=== PATIENT | female | born 1990 | race Caucasian/White ===

== ENCOUNTER 2023-06-29 22:18 | Emergency (ER) | payer MEDICAID ==
[~2023-06-29] VITALS: Ht 160 cm; Wt 71.3 kg
[2023-06-29 22:49] VITALS: BP 121/75; RESP 22; O2SAT 98
[2023-06-29 23:11] LABS: Urine Bacteria FEW /hpf (None Seen); Urine Blood Negative /uL (Negative); Urine Clarity Clear (Clear); Urine Color Colorless (Yellow); Urine Protein, UAD Negative (Negative); Urine Specific Gravity 1.013 (1.001-1.035); Urine Urobilinogen Normal (Negative); Urine WBC 6 /hpf (0 - 5)
[2023-06-29 23:21] LABS: Hematocrit 39.7 % (36.0-46.0); Hemoglobin 13.5 g/dL (12.2-16.2); Mean Corpuscular Hemoglobin 32.2 pg (28.0-32.0); Mean Corpuscular Volume 94.6 fL (80.0-100.0); Red Cell Distribution Width 12.8 % (11.8-14.3); White Blood Cell 5.5 10^3/uL (4.4-10.8)
[2023-06-29 23:37] VITALS: PULSE 74
[2023-06-29 23:38] LABS: Amphetamine Screen, Urine Neg (NEGATIVE); Benzodiazephine Screen, Urine Neg (NEGATIVE)
[2023-06-29 23:38] LABS: Basophils % (manual) 0 (0.0-2.0); Blast Cells 0; Eosinophils % (manual) 0 (0-7); Metamyelocytes % 0; Myelocytes % 0; Promyelocytes % 0; Reactive Lymphocytes 0
[2023-06-29 23:39] LABS: Barbiturate Scree,Urine Neg (NEGATIVE); Cocaine Screen, Urine Neg (NEGATIVE); Opiate Scree,Urine Neg (NEGATIVE); Phencyclidine Screen, Urine Neg (NEGATIVE)
[2023-06-29 23:40] LABS: Cannabinoid Screen, Urine Neg (NEGATIVE)
[2023-06-29 23:41] LABS: INR 0.95 (0.9-1.15); Partial Thromboplastin Time 25.8 SEC (24.5-34.5)
[2023-06-29 23:42] LABS: Alanine Aminotransferase 25 U/L (7-40); Albumin 4.5 g/dL (3.2-4.8); Alkaline Phosphatase 60 U/L (46-116); Anion Gap 9.1 (5-15); Aspartate Aminotransferase 19 U/L (13-40); BUN/Creatinine Ratio 7.5 (10.0-20.0); Bilirubin, Total 0.3 mg/dL (0.2-1.0); Blood Urea Nitrogen 7 mg/dL (9-23); Carbon Dioxide 24.9 mmol/L (20-30); Chloride 111 mmol/L (98-107); Glucose 92 mg/dL (74-106); Potassium 3.8 mmol/L (3.5-5.1); Sodium 145 mmol/L (136-145); Total Protein 7.3 g/dL (5.7-8.2)
[2023-06-30] MEDS ORDERED: PRED20TA2 PO (00:28)
[2023-06-30] MEDS ORDERED: DIPH25CA66 PO (00:28)
[2023-06-30 01:08] LABS: Band Neutrophils % (manual) 1; Lymphocytes % (manual) 78 (10.0-50.0); Monocytes % (manual) 4 (0-12)
[2023-06-30 01:10] LABS: Platelet Estimate Adequate
== END 2023-06-30 03:00 | disposition home or self-care (01) ==
LOC: ER 22:18
DX: L50.9 Urticaria, unspecified (principal); R06.02 Shortness of breath; Z88.0 Allergy status to penicillin; Z79.899 Other long term (current) drug therapy; Z79.01 Long term (current) use of anticoagulants
CPT/HCPCS: 36415; 71045; 80053; 80307; 80320; 81001; 83880; 84484; 85007; 85027; 85610; 85730; 93005

== ENCOUNTER 2024-03-05 06:04 | Inpatient (IN) | payer MEDICAID ==
[~2024-03-05] VITALS: Ht 162.6 cm; Wt 80.8 kg
[~2024-03-05 06:04] MED LIST: DIPH25CA66 PO; PRED20TA2 PO
[2024-03-05 06:51] LABS: Basophils # (auto) 0.1 10 ^3/uL (0-0.2); Basophils % (auto) 0.7 % (0.0-2.0); Eosinophils # (auto) 0.3 10 ^3/uL (0-0.8); Eosinophils % (auto) 2.9 % (0.0-7.0); Hematocrit 40.5 % (36.0-46.0); Hemoglobin 13.6 g/dL (12.2-16.2); Lymphocytes # (auto) 2.7 10 ^3/uL (0.4-5.4); Lymphocytes % (auto) 27.5 % (10.0-50.0); Mean Corpuscular Hgb Conc. 33.6 g/dL (32.0-36.0); Monocytes # (auto) 0.5 10 ^3/uL (0-1.3); Monocytes % (auto) 4.9 % (0.0-12.0); Neutrophils # (auto) 6.2 10 ^3/uL (1.6-8.6); Nucleated Red Blood Cells % 0.1 %; Red Blood Cells 4.27 10^6/uL (4.0-5.20); Red Cell Distribution Width 14.6 % (11.8-14.3); White Blood Cell 9.7 10^3/uL (4.4-10.8)
[2024-03-05 07:24] LABS: INR 0.98 (0.9-1.15); Partial Thromboplastin Time 26.5 SEC (24.5-34.5); Prothrombin Time 10.4 sec (9.3-11.8)
[2024-03-05 07:25] LABS: Alanine Aminotransferase 147 U/L (7-40); Albumin 4.4 g/dL (3.2-4.8); Alkaline Phosphatase 61 U/L (46-116); Anion Gap 13 (5-15); Aspartate Aminotransferase 152 U/L (13-40); BUN/Creatinine Ratio 12.3 (10.0-20.0); Bilirubin, Total 0.7 mg/dL (0.2-1.0); Blood Urea Nitrogen 10 mg/dL (9-23); Calcium 8.9 mg/dL (8.7-10.4); Carbon Dioxide 20 mmol/L (20-30); Chloride 106 mmol/L (98-107); Glucose 99 mg/dL (74-106); Magnesium 1.8 mg/dL (1.6-2.6); Potassium 3.5 mmol/L (3.5-5.1); Sodium 139 mmol/L (136-145); Total Protein 7.6 g/dL (5.7-8.2)
[2024-03-05] MEDS: NITROGLYCERIN 0.4 MG SL TAB SL ONE (07:58)
[2024-03-05 08:00] VITALS: PULSE 98; RESP 18; O2SAT 98
[2024-03-05] MEDS: ENOXAPARIN SOD 80 MG/0.8ML SYRINGE SC ONE (08:37)
[2024-03-05] MEDS ORDERED: ACETAMINOPHEN 325 MG TAB PO PRN (09:15)
[2024-03-05] MEDS ORDERED: MORPHINE SULFATE INJ 2 MG/ml SYRG IV PRN (09:15)
[2024-03-05] MEDS ORDERED: DOCUSATE SOD 100 MG CAP PO PRN (09:15)
[2024-03-05] MEDS ORDERED: NITROGLYCERIN 0.4 MG SL TAB SL PRN (09:15)
[2024-03-05] MEDS: SODIUM CHLORIDE 0.9% 1,000 ML IV ONE (10:17)
[2024-03-05] MEDS: ASPirin-EC 81 mg tab PO SCH (10:23)
[2024-03-05] MEDS: LORazepam 0.5 MG TAB PO ONE (10:24)
[2024-03-05] MEDS: IOHEXOL 350 MG/ML 100ML IJ ONE (10:32)
[2024-03-05] MEDS ORDERED: HYDROcodone-ACET 10/325MG TAB PO PRN (10:45)
[2024-03-05] MEDS: FOLIC ACID 1 MG TAB PO ONE (11:00)
[2024-03-05] MEDS: THIAMINE HCL 100 MG TAB PO ONE (11:01)
[2024-03-05] MEDS: MULTIPLE VITAMIN TAB PO ONE (11:01)
[2024-03-05] MEDS: LORazepam 2MG/ML-1ML VIAL IV PRN (20:47)
[2024-03-05] MEDS ORDERED: ATORVASTATIN 20 MG TAB PO SCH (22:00)
[2024-03-05] MEDS ORDERED: ENOXAPARIN SOD 80 MG/0.8ML SYRINGE SC SCH (22:00)
[2024-03-06] VITALS (9 sets, daily range): BP systolic 114–126; BP diastolic 65–90; PULSE 5–89; RESP 16–19; TEMP 98–98.6; O2SAT 95–99
[2024-03-06] MEDS: HYDROcodone-ACET 5/325MG TAB PO PRN (01:55)
[2024-03-06 04:21] LABS: Urine Bacteria None Seen /hpf (None Seen)
[2024-03-06 04:51] LABS: Urine Blood Negative /uL (Negative); Urine Budding Yeast OCCASIONAL /hpf (None Seen); Urine Clarity Clear (Clear); Urine Hyaline Cast FEW /lpf (0 - 2); Urine Protein, UAD Negative (Negative); Urine Urobilinogen Normal (Negative); Urine WBC 17 /hpf (0 - 5)
[2024-03-06 04:52] LABS: Urine Color STRAW (Yellow)
[2024-03-06 06:25] LABS: Basophils # (auto) 0 10 ^3/uL (0-0.2); Basophils % (auto) 0.7 % (0.0-2.0); Eosinophils # (auto) 0.2 10 ^3/uL (0-0.8); Eosinophils % (auto) 4.8 % (0.0-7.0); Hematocrit 36.7 % (36.0-46.0); Hemoglobin 12.6 g/dL (12.2-16.2); Lymphocytes # (auto) 1.4 10 ^3/uL (0.4-5.4); Lymphocytes % (auto) 29.9 % (10.0-50.0); Mean Corpuscular Hemoglobin 32.3 pg (28.0-32.0); Mean Corpuscular Hgb Conc. 34.3 g/dL (32.0-36.0); Mean Corpuscular Volume 94.3 fL (80.0-100.0); Monocytes # (auto) 0.4 10 ^3/uL (0-1.3); Monocytes % (auto) 8.5 % (0.0-12.0); Neutrophils # (auto) 2.6 10 ^3/uL (1.6-8.6); Neutrophils % (auto) 56.1 % (37.0-80.0); Nucleated Red Blood Cells % 0.1 %; Red Cell Distribution Width 14.2 % (11.8-14.3); White Blood Cell 4.7 10^3/uL (4.4-10.8)
[2024-03-06 06:37] LABS: Alanine Aminotransferase 130 U/L (7-40); Alkaline Phosphatase 44 U/L (46-116); Anion Gap 8 (5-15); Aspartate Aminotransferase 169 U/L (13-40); BUN/Creatinine Ratio 10.7 (10.0-20.0); Bilirubin, Total 1.2 mg/dL (0.2-1.0); Blood Urea Nitrogen 9 mg/dL (9-23); Carbon Dioxide 25 mmol/L (20-30); Chloride 106 mmol/L (98-107); Cholesterol 251 mg/dL (< 200); Glucose 81 mg/dL (74-106); HDL Cholesterol 105 mg/dL (40-59); LDL Cholesterol 120 mg/dL (< 100); Potassium 3.5 mmol/L (3.5-5.1); Sodium 139 mmol/L (136-145); Total Protein 6.8 g/dL (5.7-8.2); Triglycerides 157 mg/dL (< 150)
[2024-03-06] MEDS: FOLIC ACID 1 MG TAB PO SCH (08:34)
[2024-03-06] MEDS: THIAMINE HCL 100 MG TAB PO SCH (08:34)
[2024-03-06] MEDS: ENOXAPARIN SOD 40 MG/0.4 ML SYRINGE SC SCH (08:34)
[2024-03-06] MEDS: MULTIPLE VITAMIN TAB PO SCH (08:34)
[2024-03-06 08:54] LABS: Hepatitis B Surface Antigen Negative (Negative)
[2024-03-06 09:15] LABS: Hepatitis A Ab IgM Negative; Hepatitis B Core IgM Negative
[2024-03-06 09:16] LABS: Hepatitis C Antibody Negative (Negative)
[2024-03-06] MEDS: ONDANSETRON HCL 4 MG/2 ML VIAL IV PRN (09:36)
[2024-03-06 14:45] LABS: Amphetamine Screen, Urine Neg (NEGATIVE); Barbiturate Scree,Urine Neg (NEGATIVE); Benzodiazephine Screen, Urine Neg (NEGATIVE); Cannabinoid Screen, Urine Neg (NEGATIVE); Cocaine Screen, Urine Neg (NEGATIVE); Opiate Scree,Urine Neg (NEGATIVE)
[2024-03-06 14:46] LABS: Phencyclidine Screen, Urine Neg (NEGATIVE)
[2024-03-06] MEDS: levoFLOXacin 750MG 150 ML IV SCH (21:45)
[2024-03-06] MEDS: TEMAZEPAM 15 MG CAP PO ONE (21:46)
[2024-03-07 01:00] VITALS: BP 137/69; PULSE 64; RESP 18; TEMP 98; O2SAT 97
[2024-03-07 06:16] VITALS: BP 106/68; PULSE 65; RESP 16; TEMP 98.1; O2SAT 98
[2024-03-07 08:10] VITALS: PULSE 55
[2024-03-07 08:53] VITALS: BP 134/81; PULSE 65; RESP 14; TEMP 97.9; O2SAT 96
== END 2024-03-07 10:40 | disposition home or self-care (01) | DRG 203 ==
LOC: ER 06:04 → EDBD 06:04 → TELE 09:07 → TELE-EAST 20:30
PROVIDERS: ADMIT Internal Medicine Geriatric Medicine; ATTEND Internal Medicine Geriatric Medicine
DX: M94.0 Chondrocostal junction syndrome [Tietze] (principal); K70.10 Alcoholic hepatitis without ascites; E78.5 Hyperlipidemia, unspecified; F17.210 Nicotine dependence, cigarettes, uncomplicated; F41.9 Anxiety disorder, unspecified; F32.A Depression, unspecified; F10.229 Alcohol dependence with intoxication, unspecified; Z88.0 Allergy status to penicillin; Z91.199 Patient's noncompliance with other medical treatment and regimen due to unspecified reason; Y90.9 Presence of alcohol in blood, level not specified
CPT/HCPCS: 36415; 71275; 80053; 80061; 80074; 80307; 81001; 83036; 83735; 83880; 84443; 84484; 84702; 85025; 85379; 85610; 85730; 93005; 93306; G0378; J1956